=== PATIENT | female | born 1960 | race Caucasian/White ===

== ENCOUNTER → 2017-12-19 09:27 | Outpatient (CLI) | payer OTHER, SELFPAY ==
[2017-12-19 11:15] LABS: AST(SGOT) 48 U/L (15-37); Alanine Aminotransfer ALT/SGPT 86 U/L (13-56); Albumin, Serum 4.2 g/dL (3.2-5.0); Alkaline Phosphatase 84 U/L (45-117); Anion Gap 10 (5-15); BUN 12 mg/dL (7-18); BUN/Creat Ratio 22.6 RATIO (10-20); Calcium,Total 9.1 mg/dL (8.5-10.1); Chloride 103 mmol/L (98-107); Cholesterol 218 mg/dL (200); Creatinine, Serum 0.53 mg/dL (0.55-1.02); EST Glomerular Filtration Rate 125 mL/min (>60); Est Glom Filt Rate - Afr Amer 152 mL/min (>60); Glucose 91 mg/dL (74-106); High Density Lipoprotein 37 mg/dL; Potassium 4.4 mmol/L (3.5-5.1); Protein, Total 8.2 g/dL (6.4-8.2); Sodium Level 137 mmol/L (136-145); Triglycerides 191 mg/dL; Very Low Density Lipoprotein 38 mg/dL (5-40)
[2017-12-21 09:52] LABS: Vitamin D,25 Hydroxy 25.6 ng/mL (19.95-100.01)
== END ==
PROVIDERS: Family Provider Family Medicine; PCP Family Medicine; Visit Provider Family Medicine
DX: E78.00 Pure hypercholesterolemia, unspecified (principal); E55.9 Vitamin D deficiency, unspecified
CPT/HCPCS: 36415; 80053; 80061; 82306; 84443

== ENCOUNTER → 2018-03-22 14:52 | Outpatient (CLI) | payer OTHER, SELFPAY ==
--- NOTE | 2018-03-22 14:56 | BI_ITS ---
MAMMOGRAPHY - BILATERAL SCREENING REASON FOR EXAM: Female, 57 years old. Routine annual screening examination. PERTINENT HISTORY: Non-contributory. Remote left excisional breast biopsy. TECHNIQUE: Digital bilateral breast med (3D mammographic acquisition) in the CC and MLO projections. 2-D mediolateral oblique (MLO) and craniocaudad (CC) views of both breasts were obtained. CAD: Full Field Digital Mammography with Computer Added Detection was performed. COMPARISON: Comparison is made with prior study dated December 30, 2016 and October 29, 2015. FINDINGS: Breast Composition: There are scattered areas of fibroglandular density. There are no dominant masses or suspicious calcifications. There is a stable 1.2 cm x 1.4 cm well-defined nodule in the deep medial portion of the left breast. This abuts the chest wall. This most likely is within the inferior aspect of the breast. No new mass lesion is seen. No other significant abnormalities are identified. There has been no significant change since the prior study. BI/SCREENING MAMM (CAD), BILAT IMPRESSION: Stable bilateral screening mammogram. Yearly follow-up mammogram recommended. (A) ASSESSMENT CATEGORY: BIRADS Category 2: Benign. A letter regarding these results will be sent to the patient by the facility within 30 days. Approximately 10% of breast cancers are not detected by mammography. A normal mammogram should not delay biopsy of a clinically suspicious abnormality. [id number] Electronically Signed: Sage Griffith MD at 8:31 EDT Tel [phone], Service support ,
== END ==
PROVIDERS: Family Provider Family Medicine; PCP Family Medicine; Visit Provider Obstetrics & Gynecology
DX: Z12.31 Encounter for screening mammogram for malignant neoplasm of breast (principal)
CPT/HCPCS: 77063; 77067

== ENCOUNTER → 2019-02-15 15:25 | Outpatient (CLI) | payer OTHER, SELFPAY ==
[2019-02-18 14:17] LABS: HPV Reflexed? NOT INDICATED
== END ==
PROVIDERS: Visit Provider Obstetrics & Gynecology
DX: Z12.4 Encounter for screening for malignant neoplasm of cervix (principal)
CPT/HCPCS: 88175; G0145

== ENCOUNTER → 2019-03-30 | Outpatient (CLI) | payer OTHER, SELFPAY ==
--- NOTE | 2019-03-29 17:12 | BI_ITS ---
MAMMOGRAPHY - BILATERAL SCREENING REASON FOR EXAM: Female, 58 years old. Routine annual screening examination. PERTINENT HISTORY: Non-contributory. Remote left excisional breast biopsies. TECHNIQUE: Digital bilateral breast med (3D mammographic acquisition) in the CC and MLO projections. 2-D mediolateral oblique (MLO) and craniocaudad (CC) views of both breasts were obtained. CAD: Full Field Digital Mammography with Computer Added Detection was performed. COMPARISON: Comparison is made with prior study dated March 22, 2018 and December 30, 2016. FINDINGS: Breast Composition: The breasts are heterogeneously dense, which may obscure small masses. Stable 1.1 cm x 1.4 cm well-defined nodule in the deep medial portion of the left breast. This abuts the chest wall. Stable small bilateral axillary lymph nodes. No other significant abnormalities are identified. There has been no significant change since the prior study. BI/SCREENING MAMM (CAD), BILAT IMPRESSION: Stable bilateral screening mammogram. Yearly follow-up mammogram recommended. (A) ASSESSMENT CATEGORY: BIRADS Category 2: Benign. A letter regarding these results will be sent to the patient by the facility within 30 days. Approximately 10% of breast cancers are not detected by mammography. A normal mammogram should not delay biopsy of a clinically suspicious abnormality. [id number] Electronically Signed: Sage Griffith, at 9:55 EDT , Service support ,
== END | disposition home or self-care (01) ==
LOC: OPBI 07:51
PROVIDERS: Referring Provider Obstetrics & Gynecology; Visit Provider Obstetrics & Gynecology
DX: Z12.31 Encounter for screening mammogram for malignant neoplasm of breast (principal)
CPT/HCPCS: 77063; 77067

== ENCOUNTER → 2019-07-09 08:19 | Outpatient (CLI) | payer OTHER, SELFPAY ==
[2019-07-09 09:50] LABS: ALB/GLOB Ratio 1.1 RATIO (0.9-2.4); AST(SGOT) 30 U/L (15-37); Alanine Aminotransfer ALT/SGPT 74 U/L (13-56); Albumin, Serum 4.1 g/dL (3.2-5.0); Alkaline Phosphatase 90 U/L (45-117); Anion Gap 9 (5-15); BUN 13 mg/dL (7-18); BUN/Creat Ratio 23.9 RATIO (10-20); Calcium,Total 9.1 mg/dL (8.5-10.1); Chloride 106 mmol/L (98-107); Cholesterol 216 mg/dL (200); Creatinine, Serum 0.54 mg/dL (0.55-1.02); EST Glomerular Filtration Rate 121 mL/min (>60); Est Glom Filt Rate - Afr Amer 147 mL/min (>60); Globulin 3.7 g/dL (2.2-4.2); Glucose 116 mg/dL (74-106); High Density Lipoprotein 37 mg/dL; Potassium 4.1 mmol/L (3.5-5.1); Protein, Total 7.8 g/dL (6.4-8.2); Sodium Level 140 mmol/L (136-145); Thyroid Stim Hormone (TSH) 1.74 uIU/mL (0.358-3.74); Triglycerides 157 mg/dL; Very Low Density Lipoprotein 31 mg/dL (5-40)
[2019-07-11 09:19] LABS: Vitamin D,25 Hydroxy 64.4 ng/mL (29.95-100.01)
== END ==
PROVIDERS: Family Provider Family Medicine; PCP Family Medicine; Referring Provider Family Medicine; Visit Provider Family Medicine
DX: R73.01 Impaired fasting glucose (principal); E55.9 Vitamin D deficiency, unspecified
CPT/HCPCS: 36415; 80053; 80061; 82306; 84443

== ENCOUNTER → 2020-11-28 08:11 | Outpatient (CLI) | payer OTHER, SELFPAY ==
[2020-11-28 10:31] LABS: ALB/GLOB Ratio 1.1 RATIO (0.9-2.4); AST(SGOT) 55 U/L (15-37); Alanine Aminotransfer ALT/SGPT 96 U/L (13-56); Albumin, Serum 4.2 g/dL (3.2-5.0); Alkaline Phosphatase 106 U/L (45-117); Anion Gap 7 (5-15); BUN 13 mg/dL (7-18); BUN/Creat Ratio 24.1 RATIO (10-20); Calcium,Total 9.1 mg/dL (8.5-10.1); Chloride 108 mmol/L (98-107); Cholesterol 213 mg/dL (200); Creatinine, Serum 0.54 mg/dL (0.55-1.02); EST Glomerular Filtration Rate 122 mL/min (>60); Est Glom Filt Rate - Afr Amer 148 mL/min (>60); Globulin 3.7 g/dL (2.2-4.2); Glucose 123 mg/dL (74-106); High Density Lipoprotein 40 mg/dL; Potassium 3.7 mmol/L (3.5-5.1); Protein, Total 7.9 g/dL (6.4-8.2); Sodium Level 141 mmol/L (136-145); Triglycerides 241 mg/dL; Very Low Density Lipoprotein 48 mg/dL (5-40)
[2020-11-28 11:12] LABS: Vitamin D,25 Hydroxy 40.3 ng/mL
[2020-11-29 09:32] LABS: T4 Free Direct 0.99 ng/dL (0.76-1.46)
== END ==
PROVIDERS: PCP Family Medicine; Referring Provider Family Medicine; Visit Provider Family Medicine
DX: G47.00 Insomnia, unspecified (principal); E78.00 Pure hypercholesterolemia, unspecified; E55.9 Vitamin D deficiency, unspecified
CPT/HCPCS: 36415; 80053; 80061; 82306; 84439; 84443

== ENCOUNTER → 2021-04-06 09:13 | Outpatient (CLI) | payer OTHER, SELFPAY ==
[2021-04-06 10:32] LABS: T4 Free Direct 0.89 ng/dL (0.76-1.46); Thyroid Stim Hormone (TSH) 3.09 uIU/mL (0.358-3.74)
== END ==
PROVIDERS: PCP Family Medicine; Referring Provider Family Medicine; Visit Provider Family Medicine
DX: E03.9 Hypothyroidism, unspecified (principal)
CPT/HCPCS: 36415; 84439; 84443

== ENCOUNTER 2021-11-21 09:28 | Outpatient (CLI) | payer OTHER, SELFPAY ==
[2021-11-21 10:00] LABS: Hematocrit 41.8 % (37-47); Mean Corp Hgb Conc 33.5 g/dL (32-36); Mean Corpuscular Hgb 29.5 pg (27.0-32.0); Mean Corpuscular Volume 88.2 fL (81-99); Mean Platelet Vol. 11.9 fl (6.2-12.0); Platelet Count 236 K/mm3 (150-450); RBC Distribution Width CV 12.2 % (11.6-14.6); RBC Distribution Width SD 39.6 fl (35.1-43.9); Red Blood Count 4.74 M/mm3 (4.2-5.4)
[2021-11-21 10:49] LABS: ALB/GLOB Ratio 1.3 RATIO (0.9-2.4); AST(SGOT) 54 U/L (15-37); Alanine Aminotransfer ALT/SGPT 92 U/L (13-56); Albumin, Serum 4.2 g/dL (3.2-5.0); Alkaline Phosphatase 99 U/L (45-117); Anion Gap 7 (5-15); BUN 12 mg/dL (7-18); BUN/Creat Ratio 21.7 RATIO (10-20); Calcium,Total 9.4 mg/dL (8.5-10.1); Chloride 106 mmol/L (98-107); Creatinine, Serum 0.55 mg/dL (0.55-1.02); EST Glomerular Filtration Rate 118 mL/min (>60); Est Glom Filt Rate - Afr Amer 143 mL/min (>60); Globulin 3.2 g/dL (2.2-4.2); Glucose 161 mg/dL (74-106); Potassium 4.2 mmol/L (3.5-5.1); Protein, Total 7.4 g/dL (6.4-8.2); Sodium Level 140 mmol/L (136-145); Thyroid Stim Hormone (TSH) 2.87 uIU/mL (0.358-3.74)
[2021-11-26 16:58] LABS: HPV APTIMA, High Risk Negative (Negative)
== END 2021-11-21 23:59 | disposition short-term general hospital (02) ==
LOC: MFPLAB 09:29 → LABSPEC 16:01
PROVIDERS: PCP Family Medicine; Referring Provider Family Medicine; Visit Provider Obstetrics & Gynecology
DX: Z12.4 Encounter for screening for malignant neoplasm of cervix (principal); E11.65 Type 2 diabetes mellitus with hyperglycemia
CPT/HCPCS: 36415; 80053; 84443; 85027; 87624; 88175; G0145

== ENCOUNTER 2021-12-19 08:09 | Outpatient (CLI) | payer OTHER, SELFPAY ==
--- NOTE | 2021-12-19 08:13 | BI_ITS ---
MAMMOGRAPHY - BILATERAL SCREENING REASON FOR EXAM: Female, 61 years old. Routine annual screening examination. PERTINENT HISTORY: Non-contributory. Remote left excisional breast biopsy. TECHNIQUE: Digital bilateral breast zoya (3D mammographic acquisition) in the CC and MLO projections. 2-D mediolateral oblique (MLO) and craniocaudad (CC) views of both breasts were obtained. CAD: Full Field Digital Mammography with Computer Added Detection was performed. COMPARISON: Comparison is made with prior study dated 03/29/2019. FINDINGS: Breast Composition: The breasts are heterogeneously dense, which may obscure small masses. Stable 1.1 cm x 1.4 cm nodular density in the deep inferior medial aspect of the left breast. This is unchanged. No other significant abnormalities are identified. There has been no significant change since the prior study. BI/SCRN MAMM (CAD)W/ZOYA BILAT IMPRESSION: Stable bilateral screening mammogram. Yearly follow-up mammogram recommended. (A) ASSESSMENT CATEGORY: BIRADS Category 2: Benign. A letter regarding these results will be sent to the patient by the facility within 30 days. Approximately 10% of breast cancers are not detected by mammography. A normal mammogram should not delay biopsy of a clinically suspicious abnormality. [id number] Electronically Signed: Sage Griffith MD at 9:59 EST ,
--- NOTE | 2021-12-19 08:13 | US_ITS ---
STUDY: ULTRASOUND OF THE FEMALE PELVIS - COMPLETE REASON FOR EXAM: Female, 61 years old. Abnormal uterine bleeding. LMP: Patient is postmenopausal. TECHNIQUE: Transabdominal and Transvaginal TECHNICAL QUALITY: Adequate. COMPARISON: None. FINDINGS: The uterus is anteverted and is tilted to the left side of the pelvis. The uterus measures 8.8 cm x 8.2 cm x 4.4 cm. Normal uterine cervix. The endometrium is thickened and measures 11 mm in thickness, and is heterogeneous (striated). There is no demonstrated endometrial mass. There is evidence of a 5.2 cm x 4.2 cm x 5 cm fibroid on the right side of the body. There is also evidence of a 1 cm x 1 cm x 0.8 cm fundal cyst. I.U.D. - The patient does not have an I.U.D. The right ovary is non-visualized. The left ovary is non-visualized. There is no fluid in the cul-de-sac. The pre void volume of the bladder was 887 ml. US/Transvaginal Non- IMPRESSION: Enlarged fibroid uterus. Heterogeneous thickened endometrium. Biopsy recommended. Electronically Signed: Sage Griffith MD at 15:10 EST ,
--- NOTE | 2021-12-19 08:13 | US_ITS ---
STUDY: ULTRASOUND OF THE FEMALE PELVIS - COMPLETE REASON FOR EXAM: Female, 61 years old. Abnormal uterine bleeding. LMP: Patient is postmenopausal. TECHNIQUE: Transabdominal and Transvaginal TECHNICAL QUALITY: Adequate. COMPARISON: None. FINDINGS: The uterus is anteverted and is tilted to the left side of the pelvis. The uterus measures 8.8 cm x 8.2 cm x 4.4 cm. Normal uterine cervix. The endometrium is thickened and measures 11 mm in thickness, and is heterogeneous (striated). There is no demonstrated endometrial mass. There is evidence of a 5.2 cm x 4.2 cm x 5 cm fibroid on the right side of the body. There is also evidence of a 1 cm x 1 cm x 0.8 cm fundal cyst. I.U.D. - The patient does not have an I.U.D. The right ovary is non-visualized. The left ovary is non-visualized. There is no fluid in the cul-de-sac. The pre void volume of the bladder was 887 ml. US/Pelvic (Non ) IMPRESSION: Enlarged fibroid uterus. Heterogeneous thickened endometrium. Biopsy recommended. Electronically Signed: Sage Griffith MD at 15:10 EST ,
== END 2021-12-19 23:59 | disposition home or self-care (01) ==
LOC: OPUS 08:11
PROVIDERS: PCP Family Medicine; Referring Provider Obstetrics & Gynecology; Visit Provider Obstetrics & Gynecology
DX: Z12.31 Encounter for screening mammogram for malignant neoplasm of breast (principal); N93.9 Abnormal uterine and vaginal bleeding, unspecified
CPT/HCPCS: 76830; 76856; 77063; 77067

== ENCOUNTER 2021-12-19 08:15 | Outpatient (CLI) | payer OTHER, SELFPAY | END 2021-12-19 23:59 | disposition home or self-care (01) | LOC: US 08:15 | PROVIDERS: PCP Family Medicine; Visit Provider Obstetrics & Gynecology | DX: Z00.00 Encounter for general adult medical examination without abnormal findings (principal) ==

== ENCOUNTER 2022-01-07 11:04 | Day surgery (SDC) | payer OTHER, SELFPAY ==
--- NOTE | 2022-01-07 | EMB_PTH ---
PATIENT: GENO [place]ER [place] [facility] [id number] AGE/SX: 61/F ROOM: RE01/07/[address]: Dr. Vanessa Johnson DO : 1960 BED: DIS: 01/07/2022 SPEC #: [id number] RECD: 01/07/22 15:07 STATUS: MARK HDEZAlyssa #: [id number] JAIME: 01/07/22 00:[address]: Vanessa Johnson DEPT: SURGICAL PATHOLOGY RECD BY: Tramaine Delcid ENTERED: 01/08/22 10:13 SP TYPE: ENDOM BX/C OTHR DR: Dr. Bairon Regan MD Tissues: Endometrium, NOS Procedures: Surgery Specimen Level IV HEADER OPERATION: Hysteroscopy, dilation and curettage, resection of polyp PRE-OP DIAGNOSIS: Ultrasound showed polyp extending to lining of uterus and thickened endometrium of 11 mm TISSUE SUBMITTED: Endometrial curettings and endometrial polyp MICROSCOPIC DIAGNOSIS Endometrial curettings and endometrial polyp: Endometrial polyp and detached smaller fragments of endometrial tissue with simple endometrial hyperplasia without atypia. Fragments of myometrium. SHON:solomon 01/09/2022 MICROSCOPIC DESCRIPTION Slides are reviewed. GROSS DESCRIPTION Received in fixative is one container labeled with the patient's name and designated endometrial curettings and endometrial polyp. The specimen consists of a kline-pink polyp measuring 8.5 x 1 x 0.5 cm. This polyp is sectioned. Also present in the container are multiple fragments of hemorrhagic soft tissue that in aggregate measure 5 x 3 x 0.3 cm. The entire specimen is submitted in five cassettes as follows: 1-3 ? polyp, 4 & 5 ? smaller fragments of tissue. / Bita 01/08/2022 TC:5 [facility]: [id number]
--- NOTE | 2022-01-07 07:25 | HP.PCM_ITS ---
History and Physical Date of Admission: 01/07/22 MR#:[id number]:[id number]: GENO SHERRep #:[id number] Provider:Dr. Vanessa Johnson, DOAge/Sex: 61/F 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 Behavioral Required: No Is patient in pain?: No Allergies No Known Allergies Allergy (Verified 11/21/21 13:52) Medications ascorbic acid (vitamin C) 500 mg capsule mg PO 11/21/21 [History Confirmed 11/21/21] atenolol 50 mg tablet 50 mg PO BID 11/21/21 [History Confirmed 11/21/21] calcium carbonate 500 mg calcium (1,250 mg) chewable tablet 500 mg PO DAILY 11/21/21 [History Confirmed 11/21/21] cholecalciferol (vitamin D3) 50 mcg (2,000 unit) capsule 50 mcg PO DAILY 11/21/21 [History Confirmed 11/21/21] cyclobenzaprine 10 mg tablet 10 mg PO TID PRN 11/21/21 [History Confirmed ] gemfibrozil 600 mg tablet 600 mg PO BID 11/21/21 [History Confirmed 11/21/21] lisinopril 10 mg tablet 10 mg PO DAILY 11/21/21 [History Confirmed 11/21/21] multivitamin 1 tab PO DAILY 11/21/21 [History Confirmed 11/21/21] trazodone 50 mg tablet 50 mg PO QHS PRN 11/21/21 [History Confirmed 11/21/21] Is last menstrual period known: No Post menopausal: No Patient : No : No PFSH Surgical History (Updated 11/21/21 @ 13:56 by Robyn Perez) S/P appendectomy S/P lumpectomy, left breast S/P myomectomy Family History (Updated 11/21/21 @ 13:58 by Robyn Perez) Mother Diabetes Pancreatic cancer Father Diabetes Grandmother Diabetes Skin cancer Uncle Bowel cancer Bone cancer Social History (Updated 11/21/21 @ 13:59 by Robyn Perez) Smoking Status: Never smoker alcohol intake: current details: occasionally substance use type: does not use caffeine: Yes what type of physical activity do you participate in: none seatbelt use: always do you feel safe at home: Yes additional social history: - Alexander Patient works at [employer] Pregancy History 0 Elective abortions Hx Para Spontaneous abortions Hx # Term Pregnancies Ectopic pregnancies Hx # Pregnancies Multiple births # of living children HPI Encounter for routine gynecological examination: Details: GENO SHER is a 61 year old who presents for annual exam. She complains of some spotting that shows up on her toilet paper when wiping since September. She denies bleeding during intercourse, new work out, or use of estrogen. she uses soy often for cooking and drinks soy milk instead of cows milk. Last PAP: 2018 History of abnormal PAP: none Last mammogram: 2019 History of abnormal mammogram: no Colon cancer screening: up to date Other preventative health care screenings: none Details: GENO SHER is a 61 year old who presents for annual exam. Last PAP: [] History of abnormal PAP: [] Last mammogram: [] History of abnormal mammogram: [] Colon cancer screening: [] Other preventative health care screenings: [] Female Reproductive History Questions: metorrhagia: No, sexually active: Yes, dyspareunia: No and PCB: No Menopausal Symptoms: No hot flashes, No night sweats, No weight change, No mood changes, No difficulty concentrating, No sleep problems and No change in libido ROS Const Constitutional: Reports as per HPI; Denies fatigue, increased appetite, poor appetite, night sweats, weight gain or weight loss Cardio Card: Denies chest pain Resp Resp: Denies cough or dyspnea GI GI: Reports as per HPI; Denies abdominal pain, bloating, constipation, nausea or vomiting : Reports as per HPI and other; Denies difficulty voiding, dysuria, hematuria, hot flashes, nipple discharge, pelvic pain, prolapse symptoms, urinary frequency, urinary incontinence, urinary urgency, vaginal discharge, vaginal dryness, vaginal odor or vaginal pruritus Skin Skin/Breast: Denies changing lesions, breast mass, breast pain, breast skin changes or nipple discharge Psych Psych: Denies anxiety, change in libido, depression or difficulty concentrating Exam Const General: cooperative, healthy appearing, comfortable, no acute distress, well developed and well groomed [facility] Head: normal to inspection and normocephalic Ears: hearing grossly normal bilaterally and external ears normal Nose: external nose normal Face and sinus: normal facial exam Neck Neck: normal visual inspection, full ROM and no lymphadenopathy Thyroid: thyroid normal Chest Chest palpation & inspection: normal inspection of the chest Breast inspection: normal inspection of the breasts and normal inspection of the axillae Breast palpation: normal palpation of the breasts, normal palpation of the axillae and no axillary lymphadenopathy Resp Effort & Inspection: normal respiratory effort GI Inspection: normal to inspection and non-distended Palpation: soft, no hepatosplenomegaly and no guarding General: bladder normal to palpation External Female Exam: normal external appearance, normal appearance of the urethra and no lesions Urethra: normal appearance of the urethra and normal palpation Speculum Exam - Vagina: normal appearance of the vagina and normal vaginal discharge Speculum Exam - Cervix: normal appearance of the cervix (there is a 1 mm polyp coming from the cervical os), no cervical discharge, no lesions and nontender Bimanual Exam- Vagina & Uterus: normal bimanual exam, uterine size normal, bladder normal to palpation, No tender, uterine mobility normal, consistency normal, non-tender and no cervical motion tenderness Bimanual Exam- Adnexa, other: normal adnexae, no masses and non-tender Skin General: no rashes or lesions noted Neuro General: patient alert, moves all extremities and no focal motor deficits Extrem General: normal to inspection and no pedal edema Psych Appearance: grossly normal Mental Status: mental status grossly normal Affect: normal affect Speech and Movement: speech and movement normal Attitude: cooperative Coding Level of Care Code Off vis,est,prev 40-64yrs Diagnoses Encounter for routine gynecological examination Z01.419 Assessment and Plan Assessment and Plan (1) Encounter for routine gynecological examination: Plan - Dr. Vanessa Johnson, DO: plan to check ultrasound for extent of polyp. Return for removal vs pre-op if appears to be extending into the uterus. Cervical cancer screening: pap done today Breast cancer screening: mammogram ordered. other health maintenance examination reviewed and orders placed if needed. Encouraged maintenance of a healthy weight and active lifestyle and handout given. Annual exam handout including recommendations for good health guidelines, C alcium/vitamin D recommendations, and basic screening information given. Problem list up to date, see problem list details for any additional plan information. Follow up in one year for annual health maintenance exam or sooner if needed. Plan Details Other Orders: Orders: SCRN MAMM (CAD)W/ZOYA BILAT Today Z12.31 PAP IG HPV APTIMA 16/18,45 Today Z12.4 Pelvic (Non ) Today N93.9 Transvaginal Non- Today N93.9 UPDATE- I have seen the patient and performed any clinically relevant updates to the history and physical exam. Ultrasound showed polyp extending to lining of uterus and thickened endometrium of 11 mm. Vanessa Johnson DO
[2022-01-07 11:49] VITALS: BP 131/74; PULSE 58; RESP 18; TEMP 36.8; O2SAT 100; BMI 31.6
[2022-01-07 11:56] LABS: Bedside Glucose 118 mg/dL (74-106)
[2022-01-07] MEDS: Lactated Ringers 1,000 ML 125 ML IV (12:09)
[2022-01-07 12:27] LABS: Mean Corp Hgb Conc 33.3 g/dL (32-36); Mean Corpuscular Volume 89.9 fL (81-99); Mean Platelet Vol. 12.1 fl (6.2-12.0); Platelet Count 218 K/mm3 (150-450); RBC Distribution Width CV 12.2 % (11.6-14.6); RBC Distribution Width SD 40.3 fl (35.1-43.9); Red Blood Count 4.67 M/mm3 (4.2-5.4); White Blood Count 8.1 K/mm3 (4.4-11.0)
--- NOTE | 2022-01-07 13:03 | PCM.DC ---
Discharge Instructions Diet Discharge Diet: No restrictions Activity Discharge Activity: Return to Normal Activity, May Shower and May Take a Tub Bath (after 1 week) May resume sexual activity in: 1-2 weeks Weight Bearing Status: Weight bearing as tolerated Lifting Restrictions: none Dressing / Incision Call your doctor if you observe: Fever of 101 or Higher, Using more than 1 pad per hour, Shortness of breath and Uncontrolled pain Follow Up Care Please Follow Up With: Vanessa Johnson DO When: Call [phone] to schedule appointment. Test Results: Test results from this visit will be discussed in further detail at your follow-up appointment, if applicable. Discharge Plan Admission Primary Reason for Your Visit: dilation and curettage Attending Provider: Vanessa Johnson Primary Care Provider: Gaurav Regan Instructions Patient Instructions: Dilation and Curettage Discharge Orders/Prescriptions Prescriptions: New ibuprofen 800 mg tablet 800 mg PO Q8H PRN (Reason: pain) 7 Days Qty: 30 RF: 0 oxycodone-acetaminophen [Percocet] 5-325 mg tablet 1 tab PO Q6H PRN (Reason: pain) 3 Days Qty: 5 RF: 0 No Action atenolol 50 mg tablet 50 mg PO BID RF: 0 lisinopril 10 mg tablet 10 mg PO DAILY RF: 0 gemfibrozil 600 mg tablet 600 mg PO BID RF: 0 cholecalciferol (vitamin D3) 50 mcg (2,000 unit) capsule 50 mcg PO DAILY RF: 0 ascorbic acid (vitamin C) 500 mg capsule 500 mg PO DAILY RF: 0 calcium carbonate [Calcium 500] 500 mg calcium (1,250 mg) tablet,chewable 500 mg PO DAILY RF: 0 multivitamin Tablet 1 tab PO DAILY RF: 0 trazodone 50 mg tablet 50 mg PO QHS PRN (Reason: Sleep) RF: 0 cyclobenzaprine 10 mg tablet 10 mg PO TID PRN (Reason: Spasms) RF: 0 Referrals / Follow Up: Gaurav Regan MD [Primary Care Provider] - Disposition Disposition (needs filled in before D/C Order can be placed): Home, Self Care
[2022-01-07] MEDS: Lidocaine 1% (20 ml mdv) 20 ML Vial (13:16)
[2022-01-07 14:05] VITALS: BP 112/93; BP 131/74; PULSE 62; RESP 16; TEMP 36.7; O2SAT 99
--- NOTE | 2022-01-07 14:06 | PCM.OPRPT ---
Problems Associated Problem List Diagnoses (1) Postmenopausal bleeding: (2) Cervical polyp: Report of Operation Date of Procedure: 01/07/22 Pre-Operative Diagnosis: cervical polyp, postmenopausal bleeding Post-Operative Diagnosis: cervical polyp extending to endometrium, postmenopausal bleeding Surgery/Procedure Performed:: hysteroscopy Polypectomy, dilation and curettage Description of Surgical Findings:: large cervical polyp extending to endometrium approximately 7 cm in length and 1 cm in width Surgeon: Vanessa Johnson specialty development consultant: None Type of Anesthesia: MAC and Topical Anesth Estimated Blood Loss (mL): 20cc Fluids Replaced: 700cc Description of Procedure: Patient was prepped and draped in a normal sterile fashion under MAC anesthesia. A weighted speculum was placed in the vagina and the anterior lip of the cervix was grasped with a single-tooth tenaculum. A paracervical block was placed with 1% lidocaine. Cervix was progressively dilated to allow passage of a 5 mm hysteroscope. The lining was fully visualized and noted to have a large cervical polyp extending from the endometrium to just outside the cervix. The Uterine was sounded to 9 cm. using a polyp forceps device, the polyp was grasped and removed from the cervix. The polyp was approximately 7 cm long and 1 cm wide. A second look with the hysteroscope showed approximately 10% of the polyp still in the uterine canal. The polyp forceps were advanced into the uterus however was unable to remove the remaining stump of the polyp. Curettage was performed and samples were sent to pathology. Lastly, the symphion device was used to remove the remaining stump of the polyp without difficulty. All instruments were removed from the vagina and excellent hemostasis was noted. Patient was awoken and taken to recovery in stable condition. Estimated fluid deficit was 600cc of NS Complications none Admit VTE Documentation VTE Present on Admission: Yes VTE Mechan Device Prophylaxis: SCD's VTE Pharm Prophylaxis ordered?: No Reason prophylaxis not ordered:: Procedure Not Indicated Multi Select Codes Urinary/Genital Urinary/Genital CPT Codes: 97060 Hysteroscopy,EMC, Polypectomy
[2022-01-07 14:10] VITALS: BP 124/74; BP 131/74; PULSE 61; RESP 16; O2SAT 100
[2022-01-07 14:15] VITALS: BP 131/74; BP 135/69; PULSE 59; RESP 16; O2SAT 100
[2022-01-07 14:20] VITALS: BP 131/74; BP 135/72; PULSE 60; RESP 16; TEMP 37.1; O2SAT 99
[2022-01-07 14:58] VITALS: BP 131/74
== END 2022-01-07 23:59 | disposition home or self-care (01) ==
LOC: SDC 11:08 → AC 11:09
PROVIDERS: PCP Family Medicine; Referring Provider Obstetrics & Gynecology; Visit Provider Obstetrics & Gynecology
PROC: 0UDB8ZZ Extraction of Endometrium, Via Natural or Artificial Opening Endoscopic (ICD-10-PCS; CPT 58558; principal; 2022-01-07 12:40)
DX: N85.01 Benign endometrial hyperplasia (principal); E11.9 Type 2 diabetes mellitus without complications; N84.0 Polyp of corpus uteri; N95.0 Postmenopausal bleeding; E78.5 Hyperlipidemia, unspecified; I10 Essential (primary) hypertension; G89.29 Other chronic pain; F41.9 Anxiety disorder, unspecified; K76.0 Fatty (change of) liver, not elsewhere classified; Z79.899 Other long term (current) drug therapy
CPT/HCPCS: 58558; 82962; 85027; 86850; 86900; 86901; 88305; J7120

== ENCOUNTER → 2022-07-29 | Outpatient (CLI) | payer OTHER, SELFPAY ==
[2022-07-29 10:44] LABS: ALB/GLOB Ratio 1.1 RATIO (0.9-2.4); AST(SGOT) 23 U/L (15-37); Alanine Aminotransfer ALT/SGPT 43 U/L (13-56); Albumin, Serum 4.1 g/dL (3.2-5.0); Alkaline Phosphatase 67 U/L (45-117); Anion Gap 9 (5-15); BUN 12 mg/dL (7-18); BUN/Creat Ratio 18.4 RATIO (10-20); Calcium,Total 9.3 mg/dL (8.5-10.1); Chloride 106 mmol/L (98-107); Cholesterol 178 mg/dL (200); Creatinine, Serum 0.65 mg/dL (0.55-1.02); EST Glomerular Filtration Rate 98 mL/min (>60); Est Glom Filt Rate - Afr Amer 118 mL/min (>60); Globulin 3.7 g/dL (2.2-4.2); Glucose 156 mg/dL (74-106); High Density Lipoprotein 38 mg/dL; Protein, Total 7.8 g/dL (6.4-8.2); Sodium Level 139 mmol/L (136-145); T4 Free Direct 0.96 ng/dL (0.76-1.46); Thyroid Stim Hormone (TSH) 2.94 uIU/mL (0.358-3.74); Triglycerides 169 mg/dL; Very Low Density Lipoprotein 34 mg/dL (5-40)
== END | disposition home or self-care (01) ==
LOC: MFPLAB 08:27
PROVIDERS: PCP Family Medicine; Referring Provider Family Medicine; Visit Provider Family Medicine
DX: E03.8 Other specified hypothyroidism (principal); E78.5 Hyperlipidemia, unspecified
CPT/HCPCS: 36415; 80053; 80061; 84439; 84443

== ENCOUNTER → 2022-08-13 | Outpatient (CLI) | payer OTHER, SELFPAY ==
--- NOTE | 2022-08-13 14:00 | EMB_PTH ---
PATIENT: GENO SHER LOC: [facility] U#:[id number] AGE/SX: 62/F ROOM: RE08/13/[address]: Dr. Vanessa Johnson DO : 1960 BED: DIS: 08/13/2022 SPEC #: [id number] RECD: 08/14/22 07:46 STATUS: MARK TEIXEIRA #: [id number] JAIME: 08/13/22 14:[address]: Vanessa Johnson DEPT: SURGICAL PATHOLOGY RECD BY: Charley Borjas ENTERED: 08/14/22 07:47 SP TYPE: ENDOM BX/C OTHR DR: Dr. Bairon Regan MD Tissues: Endometrium, NOS Procedures: Surgery Specimen Level IV HEADER OPERATION: Endometrial biopsy PRE-OP DIAGNOSIS: Endometrial hyperplasia without atypia TISSUE SUBMITTED: Endometrial lining MICROSCOPIC DIAGNOSIS Endometrium, biopsy: Scant strips of benign superficial glandular mucosa. AM:parrish 08/15/22 MICROSCOPIC DESCRIPTION Slides are reviewed. GROSS DESCRIPTION Received is one container labeled with the patient's name and not further designated. The specimen consists of multiple irregular fragments of light kline soft tissue that in aggregate measure 1 x 0.5 x <0.1 cm. The specimen is totally submitted in one cassette. / AM:solomon 08/14/2022 TC:5 CPT: 32075
== END | disposition home or self-care (01) ==
LOC: LABSPEC 16:41
PROVIDERS: PCP Family Medicine; Visit Provider Obstetrics & Gynecology
DX: N85.01 Benign endometrial hyperplasia (principal)
CPT/HCPCS: 88305

== ENCOUNTER 2022-10-20 08:34 | Day surgery (SDC) | payer OTHER, SELFPAY ==
[2022-10-20] VITALS (7 sets, daily range): BP systolic 90–134; BP diastolic 54–74; PULSE 61–64; RESP 16–18; TEMP 36.4–36.6; O2SAT 99–100; BMI 29.9
--- NOTE | 2022-10-20 08:39 | HP.PCM_ITS ---
HPI - General HPI Narrative GENO SHER, is a 62 F who presents for screening colonoscopy. Patient last colonoscopy was in [address] Mason at [facility] normal per patient. Patient's maternal uncle did have colon cancer refused treatment no immediate family history. Patient denies any chronic abdominal pain/diarrhea/vomiting/reflux. Patient has bowel moods daily denies any blood. FOR[facility]LY [facility] Medical History (Updated 08/22/22 @ 13:06 by Darcy Fang) Alcohol use Anxiety Cervical polyp Diabetes Fatty liver History of stress test Hypertension Injury of head and neck Leg cramps Low iron Non-smoker Status post hysteroscopy Wears glasses Home Medications ascorbic acid (vitamin C) 500 mg capsule 500 mg PO DAILY 11/21/21 [History Last Taken Unknown] atenolol 50 mg tablet 50 mg PO BID 11/21/21 [History Last Taken 10/20/22] calcium carbonate 500 mg calcium (1,250 mg) chewable tablet (Calcium 500) 500 mg PO DAILY 11/21/21 [History Last Taken Unknown] cholecalciferol (vitamin D3) 50 mcg (2,000 unit) capsule 50 mcg PO DAILY 11/21/21 [History Last Taken Unknown] gemfibrozil 600 mg tablet 600 mg PO BID 11/21/21 [History Last Taken Unknown] lisinopril 10 mg tablet 10 mg PO DAILY 11/21/21 [History Last Taken 10/20/22] multivitamin 1 tab PO DAILY 11/21/21 [History Last Taken Unknown] ibuprofen 800 mg tablet 800 mg PO Q8H PRN pain 7 days #30 tabs 01/07/22 [Rx Last Taken Unknown] levonorgestrel 20 mcg/24 hours (8 yrs) 52 mg intrauterine device (Mirena) 20 mcg intrauterine UD 04/02/22 [History Last Taken Unknown] metformin 500 mg tablet 500 mg PO DAILY 08/13/22 [History Last Taken Unknown] Allergy/AdvReac Type Severity Reaction Status Date / Time niacin AdvReac muscle ache Verified 10/20/22 08:58 [From Niaspan Extended-Release] Family History (Updated 08/22/22 @ 13:07 by Darcy Fang) Mother Diabetes Pancreatic cancer Father Diabetes Grandmother Diabetes Skin cancer Uncle Bowel cancer Bone cancer Colon cancer Surgical History (Updated 10/16/22 @ 13:01 by Shaista Cotto) History of hysteroscopy History of tonsillectomy Hx of colonoscopy S/P appendectomy S/P dilation and curettage S/P lumpectomy, left breast S/P myomectomy Social History Smoking Status: Never smoker alcohol intake: current details: occasionally substance use type: does not use caffeine: Yes what type of physical activity do you participate in: none seatbelt use: always do you feel safe at home: Yes additional social history: - [place] Patient works at [employer] Past Medical/Surgical History Planned Operation Planned Operative Procedure/s: COLONOSCOPY Previous Hospitalizations/Surgeries HX Hospitalizations: No Any Problems With Anesthesia: Yes (NAUSEA) You/Your Family Experience Fever (Hyperthermia) With Anes: No Cholinesterase deficiency: No Cardiovascular Hx Hypertension: Yes (CONTROLLED WITH MEDS) Respiratory Hx Sleep Apnea: No Hx Respiratory Tract Infection/Cold (presently): No Do You Snore Loudly (louder than talking or can be heard): No Do You Often Feel Tired/ Fatigued/ Sleepy Dring Daytime?: No Has Anyone Observed You Stop Breathing During Sleep?: No Result (for STOP score): Negative Smoking Status: Never smoker Neurological Does patient have nerve stimulator: No Reproduction : No Miscellaneous Recent Exposure to Contagious Disease: No Allergies niacin [From Niaspan Extended-Release] Adverse Reaction (Verified 10/20/22 08:58) muscle ache Discharge Is Pt Admitted From a Detention, or a Residential: No After D/C, Where Do you Plan to Go: Return Home Physical Exam Const alert, oriented x3 and no apparent distress HEENT normocephalic and head/scalp atraumatic Resp normal respiratory effort Cardio regular rate GI soft to palpation and non-tender; Negative for non-distended Palpation: Negative for guarding Extremity no clubbing, cyanosis or edema Neuro CN's II-XII intact bilaterally Psych mental status grossly normal Assessment & Plan Assessment/Plan (1) Encounter for screening for malignant neoplasm of colon: Surgery Risks - Colonoscopy Risks Include but are not Limited To: Risks include but are not limited to: Bleeding, perforation requiring further surgery, inability to complete colonoscopy requiring barium enema.
[2022-10-20] MEDS: Lactated Ringers 1,000 ML 15 ML IV (09:00)
[2022-10-20 09:45] LABS: Bedside Glucose 136 mg/dL (74-106)
--- NOTE | 2022-10-20 09:45 | COLBX_PTH ---
PATIENT: GENO SHER LOC: EN U#:[id number] AGE/SX: 62/F ROOM: RE10/20/[address]: Dr. Mylene Barger MD : 1960 BED: DIS: 10/20/2022 SPEC #: [id number] RECD: 10/20/22 11:20 STATUS: MARK LLUVIA #: [id number] JAIME: 10/20/22 09:[address]: Mylene Barger DEPT: SURGICAL PATHOLOGY RECD BY: Cinthia Chang ENTERED: 10/20/22 13:46 SP TYPE: COLON BX GEOVANY DR: Dr. Bairon Regan MD Tissues: A - Transverse colon B - Descending colon C - Sigmoid colon biopsy Procedures: Surgery Specimen Level IV HEADER OPERATION: Colonoscopy ? open access (MAC), biopsy PRE-OP DIAGNOSIS: Screening TISSUE SUBMITTED: A ? Transverse polyp biopsy, B ? Descending polyp biopsy, C ? Sigmoid polyp biopsy MICROSCOPIC DIAGNOSIS A. Transverse colon polyp, biopsy: Fragments of tubular adenoma. B. Descending colon polyp, biopsy: Fragments of colonic mucosa, no pathologic diagnosis. C. Sigmoid colon polyp, biopsy: Fragments of colonic mucosa, no pathologic diagnosis. SHON:solomon 10/21/2022 MICROSCOPIC DESCRIPTION Slides are reviewed. GROSS DESCRIPTION A - Received in fixative is one container labeled with the patient's name and designated transverse polyp biopsy. The specimen consists of two irregular fragments of light kline soft tissue that in aggregate measure 0.4 x 0.3 x 0.1 cm. The specimen is totally submitted in one cassette. B - Received in fixative is one container labeled with the patient's name and designated descending polyp biopsy. The specimen consists of two irregular fragments of light kline soft tissue that in aggregate measure 0.5 x 0.3 x 0.1 cm. The specimen is totally submitted in one cassette. C - Received in fixative is one container labeled with the patient's name and designated sigmoid polyp biopsy. The specimen consists of two irregular fragments of light kline soft tissue that in aggregate measure 0.5 x 0.3 x 0.1 cm. The specimen is totally submitted in one cassette. / SHON:solomon 10/20/2022 TC:1 CPT: 86518 x3
--- NOTE | 2022-10-20 10:42 | OP.COLON_ITS ---
Patient Name: Valentine Young Procedure Date: 10/20/2022 9:44 AM Date of : 1960 Age: 62 Procedure: Colonoscopy Indications: Screening for colorectal malignant neoplasm Providers: Mylene Barger MD Medicines: Monitored Anesthesia Care Patient Profile: This is a 62 year old female. Last Colonoscopy: more than 10 years ago. Complications: No immediate complications. Procedure: Pre-Anesthesia Assessment: - Prior to the procedure, a History and Physical was performed, and patient medications and allergies were reviewed. The patient's tolerance of previous anesthesia was also reviewed. The risks and benefits of the procedure and the sedation options and risks were discussed with the patient. All questions were answered, and informed consent was obtained. Prior Anticoagulants: The patient has taken no previous anticoagulant or antiplatelet agents. ASA Grade Assessment: Per anesthesia. After reviewing the risks and benefits, the patient was deemed in satisfactory condition to undergo the procedure. After I obtained informed consent, the scope was passed under direct vision. Throughout the procedure, the patient's blood pressure, pulse, and oxygen saturations were monitored continuously. The Colonoscope was introduced through the anus and advanced to the cecum, identified by the ileocecal valve. The colonoscopy was performed without difficulty. The patient tolerated the procedure well. The quality of the bowel preparation was good. Scope In: 9:56:49 AM Scope Withdrawal Time 0 hours 11 minutes 21 seconds Scope Out: 10:33:06 AM Total Procedure Duration Time 0 hours 36 minutes 17 seconds Findings: Hemorrhoids were found on perianal exam. Non-bleeding internal hemorrhoids were found. The hemorrhoids were Grade I (internal hemorrhoids that do not prolapse). Three sessile polyps were found in the sigmoid colon, descending colon and transverse colon. The polyps were less than 5 mm in size. These polyps were removed with a cold biopsy forceps. Resection and retrieval were complete. The exam was otherwise without abnormality. Impression: - Hemorrhoids found on perianal exam. - Non-bleeding internal hemorrhoids. - Three less than 5 mm polyps in the sigmoid colon, in the descending colon and in the transverse colon, removed with a cold biopsy forceps. Resected and retrieved. - The examination was otherwise normal. Recommendation: - Discharge patient to home. - Resume previous diet. - Continue present medications. - Await pathology results. - Repeat colonoscopy in 5 years for surveillance based on pathology results. Procedure Code(s): --- Professional --- 22702, PT, Colonoscopy, flexible; with biopsy, single or multiple Diagnosis Code(s): --- Professional --- Z12.11, Encounter for screening for malignant neoplasm of colon K64.0, First degree hemorrhoids D12.5, Benign neoplasm of sigmoid colon D12.4, Benign neoplasm of descending colon D12.3, Benign neoplasm of transverse colon (hepatic flexure or splenic flexure) CPT copyright 2017 [employer]. All rights reserved. The codes documented in this report are preliminary and upon orthopaedic surgeon review may be revised to meet current compliance requirements. MD Mylene Riggins MD 10/20/2022 10:41:48 AM This report has been signed electronically. Number of Addenda: 0 Note Initiated On: 10/20/2022 9:44 AM
--- NOTE | 2022-10-20 10:43 | OP.CCLET_ITS ---
10/20/2022 Gaurav Regan [address] [place] [address] Re : Colonoscopy procedure for Valentine Young Dear Dr. Regan This procedure was performed on Thursday, October 20, 2022. My impressions and recommendations are as follows: Impressions : - Hemorrhoids found on perianal exam. - Non-bleeding internal hemorrhoids. - Three less than 5 mm polyps in the sigmoid colon, in the descending colon and in the transverse colon, removed with a cold biopsy forceps. Resected and retrieved. - The examination was otherwise normal. Recommendations : - Discharge patient to home. - Resume previous diet. - Continue present medications. - Await pathology results. - Repeat colonoscopy in 5 years for surveillance based on pathology results. My findings are described in the full procedure note, which is enclosed. If I can be of further assistance, please feel free to contact me at Doctor phone number(s): , Work: . Sincerely, MD Mylene Riggins MD 10/20/2022 10:41:48 AM This report has been signed electronically.
== END 2022-10-20 11:32 | disposition home or self-care (01) ==
LOC: EN 08:35 → AC 08:36
PROVIDERS: PCP Family Medicine; Referring Provider Family Medicine; Visit Provider Surgery
PROC: 0DJD8ZZ Inspection of Lower Intestinal Tract, Via Natural or Artificial Opening Endoscopic (ICD-10-PCS; CPT 45378; principal; 2022-10-20 09:40)
DX: Z12.11 Encounter for screening for malignant neoplasm of colon (principal); E11.9 Type 2 diabetes mellitus without complications; D12.3 Benign neoplasm of transverse colon; I10 Essential (primary) hypertension; K64.0 First degree hemorrhoids; K76.0 Fatty (change of) liver, not elsewhere classified; Z79.899 Other long term (current) drug therapy; Z79.84 Long term (current) use of oral hypoglycemic drugs; Z80.0 Family history of malignant neoplasm of digestive organs
CPT/HCPCS: 45380; 82962; 88305; J1610; J2405

== ENCOUNTER → 2022-12-25 | Outpatient (CLI) | payer OTHER, SELFPAY ==
--- NOTE | 2022-12-25 07:05 | BI_ITS ---
MAMMOGRAPHY - BILATERAL SCREENING REASON FOR EXAM: Female, 62 years old. Routine annual screening examination. PERTINENT HISTORY: Non-contributory. Remote left excisional breast biopsy. TECHNIQUE: Digital bilateral breast zoya (3D mammographic acquisition) in the CC and MLO projections. 2-D mediolateral oblique (MLO) and craniocaudad (CC) views of both breasts were obtained. CAD: Full Field Digital Mammography with Computer Added Detection was performed. COMPARISON: Comparison is made with prior examination dated 12/19/2021 and 03/29/2019. FINDINGS: Breast Composition: The breasts are heterogeneously dense, which may obscure small masses. There are no dominant masses or suspicious calcifications. Stable 1.4 cm x 1.1 cm nodular density overlying the deep inferior medial aspect of the left breast. This most likely represents a skin lesion. Stable benign-appearing bilateral axillary lymph nodes. No other significant abnormalities are identified. There has been no significant change since the prior study. BI/SCRN MAMM (CAD)W/ZOYA BILAT IMPRESSION: Stable bilateral screening mammogram. Yearly follow-up mammogram recommended. (A) ASSESSMENT CATEGORY: BIRADS Category 2: Benign. A letter regarding these results will be sent to the patient by the facility within 30 days. Approximately 10% of breast cancers are not detected by mammography. A normal mammogram should not delay biopsy of a clinically suspicious abnormality. [id number] Electronically Signed: Sage Griffith MD at 8:36 EST ,
== END | disposition home or self-care (01) ==
LOC: OPBI 07:04
PROVIDERS: PCP Family Medicine; Referring Provider Obstetrics & Gynecology; Visit Provider Obstetrics & Gynecology
DX: Z12.31 Encounter for screening mammogram for malignant neoplasm of breast (principal)
CPT/HCPCS: 77063; 77067

== ENCOUNTER → 2023-06-03 | Outpatient (CLI) | payer OTHER, SELFPAY ==
[2023-06-03 10:49] LABS: Vitamin B12 466 pg/mL (211-911); Vitamin D,25 Hydroxy 42.9 ng/mL
[2023-06-03 11:00] LABS: ALB/GLOB Ratio 1.1 RATIO (0.9-2.4); AST(SGOT) 39 U/L (15-37); Alanine Aminotransfer ALT/SGPT 67 U/L (13-56); Alkaline Phosphatase 94 U/L (45-117); Anion Gap 7 (5-15); BUN 12 mg/dL (7-18); BUN/Creat Ratio 21.6 RATIO (10-20); Calcium,Total 9.3 mg/dL (8.5-10.1); Chloride 105 mmol/L (98-107); Creatinine, Serum 0.56 mg/dL (0.55-1.02); EST Glomerular Filtration Rate 117 mL/min (>60); Est Glom Filt Rate - Afr Amer 142 mL/min (>60); Globulin 3.7 g/dL (2.2-4.2); Glucose 197 mg/dL (74-106); Potassium 3.7 mmol/L (3.5-5.1); Protein, Total 7.7 g/dL (6.4-8.2); Sodium Level 137 mmol/L (136-145)
== END | disposition home or self-care (01) ==
LOC: MFPLAB 09:07
PROVIDERS: PCP Family Medicine; Visit Provider Family Medicine
DX: E55.9 Vitamin D deficiency, unspecified (principal); E11.65 Type 2 diabetes mellitus with hyperglycemia
CPT/HCPCS: 36415; 80053; 82306; 82607; 84443

== ENCOUNTER → 2023-08-12 | Outpatient (CLI) | payer OTHER, SELFPAY ==
--- NOTE | 2023-08-12 09:45 | EMB_PTH ---
PATIENT: GENO SHER LOC: [facility] U#:[id number] AGE/SX: 63/F ROOM: RE08/12/[address]: Dr. Vanessa Johnson DO : 1960 BED: DIS: 08/12/2023 SPEC #: [id number] RECD: 08/12/23 11:13 STATUS: MARK LLUVIA #: [id number] JAIME: 08/12/23 09:[address]: Vanessa Johnson DEPT: SURGICAL PATHOLOGY RECD BY: Cinthia Chang ENTERED: 08/13/23 08:06 SP TYPE: ENDOM BX/C GEOVANY DR: Dr. Bairon Regan MD Tissues: Endometrium, NOS Procedures: Surgery Specimen Level IV HEADER OPERATION: Endometrial biopsy PRE-OP DIAGNOSIS: Endometrial hyperplasia without atypia TISSUE SUBMITTED: Endometrial lining MICROSCOPIC DIAGNOSIS Endometrium, biopsy: Rare strips of benign glandular mucosa. AM:solomon 08/13/2023 MICROSCOPIC DESCRIPTION Slides are reviewed. GROSS DESCRIPTION Received in fixative is one container labeled with the patient's name and designated endometrial biopsy. The specimen consists of a scant amount of soft tissue. The specimen is totally submitted for cell block preparation. / AM:solomon 08/12/2023 TC:5 CPT: 21887
== END | disposition home or self-care (01) ==
LOC: LABSPEC 08-13 07:37
PROVIDERS: PCP Family Medicine; Referring Provider Obstetrics & Gynecology; Visit Provider Obstetrics & Gynecology
DX: N85.01 Benign endometrial hyperplasia (principal)
CPT/HCPCS: 88305

== ENCOUNTER → 2023-11-16 | Outpatient (CLI) | payer OTHER, SELFPAY ==
[2023-11-16 10:03] LABS: Absolute Lymphocyte Count 2.49 X10^3/uL (0.83-4.51); Absolute Neutrophil Count 5.7 X10^3/uL (2.0-7.7); Basophil# 0.08 X10^3/uL; Basophil% 0.9 % (0-1); Eosinophil# 0.27 X10^3/uL; Eosinophils% 2.9 % (0-5); Hematocrit 42.1 % (37-47); Hemoglobin 13.8 g/dL (12.0-15.0); Lymphocyte # 2.49 X10^3/ul (0.83-4.51); Lymphocyte % 26.9 % (19-41); Mean Corp Hgb Conc 32.8 g/dL (32-36); Mean Corpuscular Hgb 29.3 pg (27.0-32.0); Mean Corpuscular Volume 89.4 fL (81-99); Mean Platelet Vol. 12.6 fl (6.2-12.0); Monocyte# 0.67 X10^3/uL; Monocyte% 7.3 % (0-10); NRBC Flagged by Analyzer 0 % (0-5); Neutrophil % 61.7 % (47-70); Platelet Count 216 K/mm3 (150-450); RBC Distribution Width CV 12.2 % (11.6-14.6); RBC Distribution Width SD 40.1 fl (35.1-43.9); Red Blood Count 4.71 M/mm3 (4.2-5.4); White Blood Count 9.2 K/mm3 (4.4-11.0)
[2023-11-16 11:55] LABS: Microalbumin:Creatinine Ratio 188.6 mg/g CRE (<30 mg/g CRE)
[2023-11-16 12:24] LABS: ALB/GLOB Ratio 1.2 RATIO (0.9-2.4); AST(SGOT) 18 U/L (15-37); Alanine Aminotransfer ALT/SGPT 35 U/L (13-56); Albumin, Serum 4.1 g/dL (3.2-5.0); Alkaline Phosphatase 86 U/L (45-117); Anion Gap 9 (5-15); BUN 19 mg/dL (7-18); BUN/Creat Ratio 30.7 RATIO (10-20); Calcium,Total 9.3 mg/dL (8.5-10.1); Chloride 104 mmol/L (98-107); Cholesterol 139 mg/dL (200); Creatinine, Serum 0.62 mg/dL (0.55-1.02); EST Glomerular Filtration Rate 103 mL/min (>60); Est Glom Filt Rate - Afr Amer 125 mL/min (>60); Globulin 3.4 g/dL (2.2-4.2); Glucose 208 mg/dL (74-106); High Density Lipoprotein 37 mg/dL; Potassium 3.9 mmol/L (3.5-5.1); Protein, Total 7.5 g/dL (6.4-8.2); Sodium Level 138 mmol/L (136-145); Triglycerides 231 mg/dL; Very Low Density Lipoprotein 46 mg/dL (5-40)
== END | disposition home or self-care (01) ==
LOC: LAB 09:26
PROVIDERS: PCP Internal Medicine; Referring Provider Internal Medicine; Visit Provider Internal Medicine
DX: E11.9 Type 2 diabetes mellitus without complications (principal); E55.9 Vitamin D deficiency, unspecified
CPT/HCPCS: 36415; 80053; 80061; 82043; 82306; 82570; 85025

== ENCOUNTER → 2023-12-28 | Outpatient (CLI) | payer OTHER, SELFPAY ==
--- NOTE | 2023-12-28 10:27 | BI_ITS ---
MAMMOGRAPHY - BILATERAL SCREENING REASON FOR EXAM: Female, 63 years old. Routine annual screening examination. PERTINENT HISTORY: Non-contributory. Remote left excisional breast biopsy. TECHNIQUE: Digital bilateral breast zoya (3D mammographic acquisition) in the CC and MLO projections. 2-D mediolateral oblique (MLO) and craniocaudad (CC) views of both breasts were obtained. CAD: Full Field Digital Mammography with Computer Added Detection was performed. COMPARISON: Comparison is made with prior study dated December 25, 2022 and December 19, 2021. FINDINGS: Breast Composition: The breasts are heterogeneously dense, which may obscure small masses. There are no dominant masses or suspicious calcifications. Stable 1.4 solid by 1.1 cm nodular density overlying the deep inferior medial aspect of the left breast. This is suggestive of a skin lesion. Stable benign-appearing bilateral axillary lymph nodes. No other significant abnormalities are identified. There has been no significant change since the prior study. BI/SCRN MAMM (CAD)W/ZOYA BILAT IMPRESSION: Stable bilateral screening mammogram. Yearly follow-up mammogram recommended. (A) ASSESSMENT CATEGORY: BIRADS Category 2: Benign. A letter regarding these results will be sent to the patient by the facility within 30 days. Approximately 10% of breast cancers are not detected by mammography. A normal mammogram should not delay biopsy of a clinically suspicious abnormality. [id number] Electronically Signed: Sage Griffith MD at 12:24 EST ,
== END | disposition home or self-care (01) ==
LOC: OPBI 10:27
PROVIDERS: PCP Internal Medicine; Referring Provider Obstetrics & Gynecology; Visit Provider Obstetrics & Gynecology
DX: Z12.31 Encounter for screening mammogram for malignant neoplasm of breast (principal)
CPT/HCPCS: 77063; 77067

== ENCOUNTER → 2024-12-21 | Outpatient (CLI) | payer MEDICARE, OTHER, SELFPAY ==
--- NOTE | 2024-12-21 12:36 | US_ITS ---
PROCEDURE: Pelvic ultrasound, transabdominal and transvaginal. REASON FOR EXAM: Endometrial hyperplasia COMPARISON: 12/19/2021 FINDINGS Included portions of the urinary bladder show no specific abnormality. The uterus is anteverted measuring 8.9 x 5.2 x 4.7 cm. The right ovary is measured at 2.5 x 1.4 x 1.6 cm. The left ovary is 2.1 x 2.0 x 1.3 cm. No dominant adnexal mass or free pelvic fluid. There appears to be blood flow in both ovaries on Doppler evaluation. Endovaginal measurement of the endometrium is 5 mm near the fundus. 1.1 cm simple appearing nabothian cyst. An obliquely oriented linear echogenic structure in the mid posterior body of the uterus is presumed to represent an intrauterine device. A partially exophytic 4.1 cm probable fibroid of the posterior uterine body/fundus. US/Pelvic w/ Transvaginal IMPRESSION: The endometrium measures 5 mm, which is at the upper limits of normal for a pos tmenopausal woman. 4.1 cm partially exophytic fibroid mid posterior uterine body. There is a linear echogenic structure obliquely oriented in the posterior uteri ne body. This may be imbedded in the uterine myometrium. Unremarkable ovaries. No adnexal mass or free pelvic fluid. Reading Location: [facility]
== END | disposition home or self-care (01) ==
LOC: US 12:35
PROVIDERS: PCP Internal Medicine; Referring Provider Obstetrics & Gynecology; Visit Provider Obstetrics & Gynecology
DX: N85.00 Endometrial hyperplasia, unspecified (principal)
CPT/HCPCS: 76830; 76856

== ENCOUNTER → 2024-12-29 | Outpatient (CLI) | payer MEDICARE, OTHER, SELFPAY ==
[2024-12-29 12:30] LABS: Absolute Lymphocyte Count 1.93 X10^3/uL (0.83-4.51); Absolute Neutrophil Count 6.4 X10^3/uL (2.0-7.7); Basophil# 0.08 X10^3/uL; Basophil% 0.9 % (0-1); Eosinophil# 0.25 X10^3/uL; Eosinophils% 2.7 % (0-5); Hematocrit 40.8 % (37-47); Hemoglobin 13.4 g/dL (12.0-15.0); Lymphocyte # 1.93 X10^3/ul (0.83-4.51); Lymphocyte % 20.9 % (19-41); Mean Corp Hgb Conc 32.8 g/dL (32-36); Mean Corpuscular Hgb 29.3 pg (27.0-32.0); Mean Corpuscular Volume 89.3 fL (81-99); Mean Platelet Vol. 12.6 fl (6.2-12.0); Monocyte# 0.56 X10^3/uL; Monocyte% 6.1 % (0-10); NRBC Flagged by Analyzer 0 % (0-5); Neutrophil # 6.38 X10^3/uL (2.7-7.7); Neutrophil % 69.2 % (47-70); Platelet Count 234 K/mm3 (150-450); RBC Distribution Width CV 12.7 % (11.6-14.6); RBC Distribution Width SD 41.3 fl (35.1-43.9); Red Blood Count 4.57 M/mm3 (4.2-5.4); White Blood Count 9.2 K/mm3 (4.4-11.0)
[2024-12-29 13:50] LABS: ALB/GLOB Ratio 1.7 RATIO (0.9-2.4); AST(SGOT) 25 U/L (<=31); Alanine Aminotransfer ALT/SGPT 38 U/L (<=34); Albumin, Serum 4.9 g/dL (3.4-4.8); Alkaline Phosphatase 77 U/L (35-104); Anion Gap 12 (5-15); BUN 20 mg/dL (4-19); BUN/Creat Ratio 36.9 RATIO (10-20); Calcium 10.1 mg/dL (7.6-11.0); Carbon Dioxide 23.4 mmol/L (22.0-29.0); Chloride 103 mmol/L (96-108); Creatinine, Serum 0.5 mg/dL (0.6-1.0); EST Glomerular Filtration Rate 102 (>60); Globulin 2.9 g/dL (2.2-4.2); Glucose 184 mg/dL (70-99); Potassium 4.4 mmol/L (3.3-5.1); Protein, Total 7.8 g/dL (5.9-8.4); Sodium Level 138 mmol/L (133-145); Total Bilirubin 0.46 mg/dL (0.00-1.30)
[2024-12-29 16:14] LABS: Microalbumin,Random Urine 14.3 mg/L (NO RANGE EST.); Microalbumin:Creatinine Ratio 1162.6 mg/g CRE
[2024-12-29 21:10] LABS: Cholesterol 144 mg/dL (<=200); High Density Lipoprotein 38 mg/dL; Low Density Lipoprotein Calc. 60 mg/dL; Triglycerides 231 mg/dL; Very Low Density Lipoprotein 46 mg/dL (5-40); cholesterol:hdl ratio screen 3.84
[2024-12-30 05:07] LABS: Rubeola IgG Ab > 300.0 AU/mL (Immune >16.4)
== END | disposition home or self-care (01) ==
LOC: BIMLAB 09:33
PROVIDERS: PCP Internal Medicine; Referring Provider Internal Medicine; Visit Provider Internal Medicine
DX: Z01.84 Encounter for antibody response examination (principal); E11.9 Type 2 diabetes mellitus without complications; E78.2 Mixed hyperlipidemia
CPT/HCPCS: 36415; 80053; 80061; 82043; 82570; 85025; 86765

== ENCOUNTER → 2025-01-10 | Outpatient (CLI) | payer MEDICARE, OTHER, SELFPAY ==
--- NOTE | 2025-01-10 15:45 | BD_ITS ---
PROCEDURE: DEXA BONE DENSITY STUDY REASON FOR EXAM: POSTMENOPAUSAL TECHNIQUE: DEXA scan of the lumbar spine and hip(s). COMPARISON: None. Note an exam dated 02/18/2011 is not available for review however the measurements obtained are retained by the imaging unit for comparison purposes. FINDINGS: LUMBAR SPINE: Bone mineral denisty, L1 and L3-L4: 0.818 g/cm??? T-score: -2.1 LEFT FEMORAL NECK: Bone mineral denisty: 0.673 g/cm??? T-score: -1.6 LEFT TOTAL HIP: Bone mineral denisty: 0.803 g/cm??? T-score: -1.1 RIGHT FEMORAL NECK: Bone mineral denisty: 0.678 g/cm??? T-score: -1.5 RIGHT TOTAL HIP: Bone mineral denisty: 0.790 g/cm??? T-score: -1.2 FRAX*: 10 Year Probability of Fracture: Major Osteoporotic Fracture(1): 16.0% Hip Fracture(2): 1.1% *FRAX is a trademark of the [employer]'s [employer] for Metabolic Bone Disease, World Health Organization (WHO) Collaborating [employer]. 1-Major Osteoporotic Fracture: Clinical Spine, Forearm, Hip or Shoulder. 2-The 10-year probability of fracture may be lower than reported if the patient has received treatment. BD/Dexa Bone Density Study IMPRESSION: 1. Osteopenia. 2. Since 02/18/2011, there has been a decrease 0.196 g/cm??? (19.3%) in the bon e mineral density of the lumbar spine. 3. Additional description as above. Reading Location: [id number]
--- NOTE | 2025-01-10 16:30 | BI_ITS ---
PROCEDURE: SCRN MAMM (CAD)W/ZOYA BILAT REASON FOR EXAM: F, Age 64 y/o , SCREENING MAMMOGRAM. No family history of breast cancer. TECHNIQUE: Bilateral screening digital breast tomosynthesis with 2D and 3D images. Computer aided detection. COMPARISON: 12/28/2023, 12/25/2022 FINDINGS: There are scattered areas of fibroglandular density. No suspicious masses, areas of developing architectural distortion, or suspicious calcifications. BI/SCRN MAMM (CAD)W/ZOYA BILAT IMPRESSION: There is no mammographic evidence of malignancy. BI-RADS 1: NEGATIVE. RECOMMEND ANNUAL MAMMOGRAPHIC SCREENING. Follow-up code: Routine Follow-up The patient will be notified of the results by letter. Reading Location: [id number]
== END | disposition home or self-care (01) ==
LOC: OPBD 15:41
PROVIDERS: PCP Internal Medicine; Referring Provider Obstetrics & Gynecology; Visit Provider Obstetrics & Gynecology
DX: Z12.31 Encounter for screening mammogram for malignant neoplasm of breast (principal); Z78.0 Asymptomatic menopausal state
CPT/HCPCS: 77063; 77067; 77080